=== PATIENT | female | born 1945 | race Hispanic/Latino ===

== ENCOUNTER 2025-02-17 19:05 | Emergency (ER) | payer OTHER, SELFPAY ==
[2025-02-17 19:10] VITALS: BP 144/80
[2025-02-17 19:39] LABS: Hematocrit 40.6 % (37.0-47.0); Hemoglobin 13.7 g/dL (12.0-16.0); Mean Corp Hgb Conc. 33.7 g/dL (33.0-37.0); Mean Corpuscular Volume 87.7 fL (81.0-99.0); Nucleated Red Blood Cells % 0 %; Platelet Count 235 10^3/uL (130-400); Red Cell Dist. Width 13.9 % (11.5-14.5)
[2025-02-17 19:59] LABS: ALT (SGPT) 17 U/L (0-35); AST (SGOT) 22 U/L (14-36); Albumin 4.3 g/dl (3.5-5.0); Alkaline Phosphatase 72 U/L (38-126); Blood Urea Nitrogen 23 mg/dl (7-17); Calcium 9.4 mg/dl (8.4-10.2); Carbon Dioxide 29 mmol/L (22-30); Chloride 107 mmol/L (98-107); Glucose 103 mg/dl (70-99); Potassium 4.4 mmol/L (3.5-5.1); Sodium 141 mmol/L (135-145); Total Protein 7.1 g/dl (6.3-8.2); eGFR 56.60
[2025-02-17 20:10] LABS: Troponin I < 0.012 ng/ml
[2025-02-17 20:41] VITALS: BMI 48.8
[2025-02-17 20:44] VITALS: BP 151/89
[2025-02-17 21:00] VITALS: BP 122/79
[2025-02-17 21:30] VITALS: BP 120/63
--- NOTE | 2025-02-17 22:22 | ED.GENMED ---
History of Present Illness
General
Chief Complaint: Swelling
Source: patient, records and family
Exam Limitations: none
Time Seen by Provider: 02/17/25 20:57
Nursing documentation reviewed up to this point in time: agreed with
History of Present Illness
History of Present Illness:
79-year-old female originally from [place], lives both in [place] and locally presents for lower extremity edema mild shortness of breath did not take her Lasix today, has hypertension diabetes, no fever chills no chest pain mild shortness of
breath, with exertion, did review some records on the daughter's phone from 2020 she had an echocardiogram showed diastolic dysfunction negative lower extremity Dopplers, negative CT angiogram for PE, patient is had no fever, no nausea or vomiting,
daughter is interested in transferring some of her care to local physicians, if she is can be living in this area more frequently
Past History
Past History
ED Past Medical History: CHF, HTN and NIDDM; Negative LA
ED Past Surgical History: None
Social History
Tobacco: Non-smoker
Alcohol: None
Drug: None
Living: with family
Employment: Retired
Review of Systems
Review of Systems
All Other Systems: Not applicable
Constitutional: Denies fever or fatigue
EENT: Reports no symptoms
Respiratory: Reports trouble breathing; Denies cough or hemoptysis
Cardiac: Denies chest pain
ABD/GI: Reports no symptoms
: Reports no symptoms
Musculoskeletal: Reports edema
Neurological: Reports no symptoms
Hematologic/Lymphatic: Reports no symptoms
Psychiatric: Reports no symptoms
Phy Exam
Physical Exam
Physical Exam:
Physical Exam
General: no apparent distress, not acutely ill
Neck: No trauma
Heart: s1/s2 regular rate and rhythm, no murmur. equal radial pulses.
Lungs: Faint crackle
Abdomen: Not
Neuro: alert and oriented. no focal neurological deficits
Skin: no rash
Psychiatric: well kept. interactive and cooperative
Extremities: 1+ edema no calf pain
Scores
Heart Failure Risk
Heart Failure Risk Score: Yes
History of Stroke or TIA: No
History of intubation for respiratory distress: No
Heart rate on ED arrival >/= 110: No
SaO2 <90% on arrival on room air: No
HR >/=110 during 3min walk test (or too ill to perform test): No
ECG has acute ischemic changes: No
Urea >/=12mmol/L (BUN 33.6mg/dL): No
Serum CO2>/=35mmol/L: No
Troponin I or T elevated to LA Level (0.4mg/dL): No
NT-proBNP >/=5,000ng/L (5,000pg/ml): No
HF Risk Score: 0
Admission Status: LOW RISK 2.8% Consider discharge to home with f/u visit to PCP/[facility]
Course
Orders/Labs/Results
Orders:
Orders
02/17/25 19:13
ECG [Electrocardiogram (*1)] Urgent
Reason for Study: Shortness of Breath
Other Reason for Exam: pedal edema
02/17/25 19:14
EKG- Treatment ONCE
02/17/25 19:32
Complete Blood Count/With Diff Urgent
Comprehensive Metabolic Panel Urgent
NT-proBNP Urgent
Troponin I Urgent
02/17/25 20:54
CXR2 [CR Chest - 2 Views ] Urgent
Comment:
Reason For Exam: short of breath
02/17/25 21:10
Legs, Bilateral US [US Periph Venous LOWER Ext Timbo] Urgent
Comment:
Reason For Exam: swelling
02/17/25 21:29
Furosemide [Lasix] 40 mg PO NOW STA
Abnormal Lab Results
02/17/25
19:32
Monocytes % 10.9 H %
(1.7-9.3)
BUN 23 H mg/dl
(7-17)
Glucose 103 H mg/dl
(70-99)
02/17/25 19:32
02/17/25 19:32
Vital Signs
Initial and Last Documented VS:
Initial Vital Signs
Temp Pulse Resp BP Pulse Ox
98.6 F 60 16 144/80 98
02/17/25 19:10 02/17/25 19:10 02/17/25 19:10 02/17/25 19:10 02/17/25 19:10
Last Documented Vital Signs
Temp Pulse Resp BP Pulse Ox
98.3 F 53 22 138/84 99
02/17/25 20:44 02/17/25 22:45 02/17/25 22:45 02/17/25 22:29 02/17/25 22:45
MDM/Problems Addressed
Differential Diagnosis Includes:
CHF DVT, pneumonia doubt PE by history and physical
MDM/Problems Addressed:
Lower extremity swelling mild shortness of
Chronic conditions affecting care: DM, HTN and Cardiomyopathy
Acute Exacerbation and/or Progression of Chronic Illness: DM, HTN and Cardiomyopathy
*Pulse Oximetry
SaO2: 100
Oxygen Mode of Delivery: Room air
Patient hypoxic: no
*EKG
Interpreted by ED Provider?: Yes
Interpretation: abnormal
Comparison EKG: no comparison EKG present
Heart Rate: 78
Rate: normal
Rhythm: sinus
Ischemia: non-specific ST changes
*Hand Pleater Interpretation
Rate: normal and tachycardiac
Interpretation: normal
Heart Rate: 78
Rhythm: sinus
*Critical Care Note
Total Time (30-74mins, 75-104mins- exclusive of procedures): Not Applicable
Data Reviewed
Review of Other/Old Records Reveals: Records
Source: patient, records, family and previous hospital records (2020 from [facility])
ED Attending Note
-
Portions of this chart may have been created with voice recognition software.� Occasional wrong word or��sound alike� substitutions may have occurred due to the inherent limitations of voice recognition software.
Discharge Plan
Departure
Patient Disposition: Home (Routine Discharge)
Date of Disposition: 02/17/25
Time of Disposition: 22:53
Patient with high blood pressure during this ER visit?: Yes
Condition: Good
Covid-19: Not Applicable
Discharge Problem:
Leg swelling
Instructions: Dependent Edema (DC), *DCA Heart Failure Instructions, BLOOD PRESSURE
Prescriptions:
No Action
amlodipine 10 MG tablet
10 mg PO DAILY
losartan 25 MG tablet
25 mg PO DAILY
dexlansoprazole [Dexilant] 30 MG capsule,biphase delayed releas
60 mg PO Daily
prednisone 10 MG tablet
10 mg PO .TAPER Qty: 30 0RF
Rx Instructions:
Take 40mg daily x3days, 30mg daily x3days, 20mg daily x3days, 10mg daily x3days.
Referrals:
Madelin Ramirez, DO [Active, Cardiology] - Next open appointment
UNKNOWN - PT NOT,INTERVIEWE [Unknown Provider]
Interventions
Interventions:
*Risk Screen - Suicide Last Done: 02/17/25 20:42
*General Assessment Last Done: 02/17/25 20:42
*Neglect/Abuse Screening Last Done: 02/17/25 20:42
*ED- Fall Risk Assessment Last Done: 02/17/25 20:42
*ED COVID-19 Vaccine History Last Done: 02/17/25 20:42
*Nursing Disposition Last Done: 02/17/25 23:05
ED- Cardiac Assessment Last Done: 02/17/25 20:48
ED- Pulmonary Assessment Last Done: 02/17/25 20:48
ED-Skin Assessment Last Done: 02/17/25 20:52
Discharge Date and Time
Discharge Date/Time: 02/17/25 23:05
Print Language: FRISIAN
[2025-02-17 22:25] VITALS: BP 138/84
[2025-02-17] MEDS: LASIX 40 MG PO (22:29)
== END 2025-02-17 23:05 | disposition home or self-care (01) ==
LOC: EMR 19:05
PROVIDERS: EMERGENCY PHYSICIAN Emergency Medicine
DX: R60.0 Localized edema (principal); E11.9 Type 2 diabetes mellitus without complications; I42.9 Cardiomyopathy, unspecified; I11.0 Hypertensive heart disease with heart failure; I50.9 Heart failure, unspecified; T50.1X6A Underdosing of loop [high-ceiling] diuretics, initial encounter; Z91.148 Patient's other noncompliance with medication regimen for other reason
CPT/HCPCS: 99284; 71046; 80053; 83880; 84484; 85025; 93005; 93970